=== PATIENT | female | born 1955 | race Caucasian/White ===

== ENCOUNTER 2019-02-12 06:57 | Day surgery (SDC) | payer OTHER ==
[~2019-02-12 06:57] MED LIST: ATARAX25 MG PO; ATORVASTATIN CA40 MG PO; CLARITIN10 M1 PO; CLONAZEPAM1 M1 PO; COZAAR25 MG PO; NORVASC5 MG PO; PAROXETINE HCL20 MG PO; TENAZEPAN PO; VIT D PO
== END 2019-02-12 17:00 | disposition home or self-care (01) ==
LOC: CIR.AMB 06:57
DX: I72.1 Aneurysm of artery of upper extremity (principal)